=== PATIENT | female | born 1965 | race Caucasian/White ===

== ENCOUNTER 2020-07-06 08:30 | Day surgery (SDC) | payer OTHER ==
[2020-07-02 14:45] VITALS: BMI 42.9
--- NOTE | 2020-07-05 12:02 | HP ---
HISTORY AND PHYSICAL CHIEF COMPLAINT: Left wrist pain. HISTORY OF PRESENT ILLNESS: The patient is a 55-year-old, left-hand dominant, unemployed female who presents with left wrist pain after an injury on 06/19/2020. She states she lost her balance while doing yard work and fell on the left arm. She was seen in the emergency room on 06/30/2020, was placed in a splint, which she removed the same day. She denies previous injury or problems. PAST MEDICAL HISTORY: Significant for depression, asthma, COPD, hypertension. PAST SURGICAL HISTORY: Significant for carpal tunnel release. CURRENT MEDICATIONS: Advair, bupropion, meloxicam, ProAir, and trazodone. ALLERGIES: ACETAMINOPHEN. FAMILY HISTORY: Significant for heart disease. SOCIAL HISTORY: Significant for 1 pack per day tobacco use. REVIEW OF SYSTEMS: Sixteen point review of systems otherwise reviewed and is noncontributory. PHYSICAL EXAMINATION: On examination, patient is approximately 5 foot 4, 250 pounds of endomorphic habitus. HEENT exam is nonfocal. Neck is supple. She is nontender about the left shoulder and elbow. On examination of her left wrist, she has large dorsal swelling and deformity. Skin is intact. Light touch is intact throughout the left digits. No gross motor deficits are noted. She has limited range of motion of both the wrist and the digits. X-rays of the left wrist obtained in the office show a comminuted extra-articular distal radius fracture with significant angulation and dorsal comminution. IMPRESSION: 1. Left comminuted extra-articular distal radius fracture. 2. Chronic obstructive pulmonary disease. 3. Obesity. RECOMMENDATIONS: I talked to the patient at length regarding her condition which is complex. After thorough discussion, she opts to proceed with surgery. We will plan to proceed with open reduction and internal fixation. Potentially we will perform that as an outpatient procedure. Risks and benefits were discussed at length in layman's terms. MMODL / IJN: [id number] /
[~2020-07-06 08:30] MED LIST: DEXAMETHASONE SOD PHOSPHATE 4 MG/ML 1 ML VIAL IV ONE; HYDROmorphone 0.5 MG/0.5 ML SYRINGE IVP PRN; LACTATED RINGERS 1,000 ML IV SCH; LIDOCAINE 1% (10MG/ML) FOR IV START INTRADERMA PRN; MIDAZOLAM 2 MG/2 ML VIAL IV PRN; ONDANSETRON 4 MG/2 ML VIAL IVP ONE
[2020-07-06 08:58] VITALS: TEMP 97.8
[2020-07-06 09:44] LABS: Basophils # (A) 0.1 k/uL (0-0.2); Basophils % (A) 1 %; Eosinophils # (A) 0.1 k/uL (0-0.7); Eosinophils % (A) 1 %; HCT 39.9 % (34.0-46.0); HGB 13.6 gm/dL (11.4-16.0); Lymphocytes # (A) 2.3 k/uL (1.0-4.8); Lymphocytes % (A) 24 %; MCH 32.8 pg (25.0-35.0); MCHC 34.1 g/dL (31.0-37.0); Mean Platelet Volume 8.7; Monocytes # (A) 0.5 k/uL (0-1.0); Monocytes % (A) 6 %; Neutrophils # (A) 6.5 k/uL (1.3-7.7); Neutrophils % (A) 68 %; Platelet Count 262 k/uL (150-450); RBC 4.16 m/uL (3.80-5.40); RDW 13.3 % (11.5-15.5); WBC 9.5 k/uL (3.8-10.6)
[2020-07-06] MEDS ORDERED: MIDAZOLAM 2 MG/2 ML VIAL IV ONE (09:44)
[2020-07-06] MEDS ORDERED: LIDOCAINE 1% INJ 10MG/ML (20 ML MDV) ONE (10:12)
[2020-07-06] MEDS ORDERED: fentaNYL (PF) 50 MCG/ML 2 ML AMP ONE (10:12)
[2020-07-06] MEDS ORDERED: PROPOFOL 10 MG/ML 20 ML VIAL IV ONE (10:12)
[2020-07-06] MEDS ORDERED: SUCCINYLCHOLINE CHLORIDE 100 MG/5 ML SYR IV ONE (10:12)
[2020-07-06] MEDS ORDERED: DEXAMETHASONE SOD PHOSPHATE 4 MG/ML 1 ML VIAL ONE (10:12)
[2020-07-06] MEDS ORDERED: PHENYLEPHRINE-0.9% NACL SYG 1,000 MCG/10 ML SYRINGE ONE (10:12)
[2020-07-06] MEDS ORDERED: MIDAZOLAM 2 MG/2 ML VIAL ONE (10:12)
[2020-07-06] MEDS ORDERED: ROPIVACAINE 5 MG/ML 30 ML VIAL ONE (10:12)
[2020-07-06] MEDS ORDERED: ceFAZolin 1,000 MG in SODIUM CHLORIDE 0.9% 1,000 ML IRRIGATION ONE (10:48)
[2020-07-06] MEDS ORDERED: LACTATED RINGERS 1,000 ML IV ONE (11:54)
--- NOTE | 2020-07-06 12:38 | P.OP ---
Date of Procedure: 07/06/20 Preoperative Diagnosis: Comminuteddisplaced left extra-articular distal radius fracture Postoperative Diagnosis: Same Procedure(s) Performed: Open reduction and internal fixation left extra-articular distal radius fracture Implants: Arthrex 3-hole standard volar plate Anesthesia: irene JUNIOR Surgeon: Chadd Roca Planer Stone #1: Carlos Mcgowan Estimated Blood Loss (ml): 10 Pathology: none sent Condition: stable Disposition: PACU Indications for Procedure: The patient's a 55-year-old female who presented after injuring herself almost 2 weeks ago with a significantly comminuted and displaced left extra-articular distal radius fracture. A discussion the risks and benefits of operative intervention was made with patient. She opted to proceed with surgery. Operative risks to include infection, neurovascular injury, development of nonunion/malunion, possible need for subsequent procedures was discussed. She was informed because of the nature of her fracture and the delay in seeking medical treatment, these complications and risks are significantly increased. She is also a heavy smoker and that increases her risks as well. Informed consent was obtained. Operative Findings: As below Description of Procedure: The patient was brought to the operating room, and after induction of general anesthesia the left upper extremity was prepped and draped in normal fashion. The tourniquet was inflated to 250 mmHg. An 8 cm incision was then made along the volar aspect of the left wrist in line with the flexor carpi radialis. Skin was incised sharply. Subcutaneous tissues were divided bluntly. Electrocautery was used for hemostasis. The flexor carpi radialis sheath was then opened and the tendon was gently retracted ulnarly and the radial artery was retracted radially. The underlying fascia was opened. The contents the carpal canal were bluntly dissected ulnarly. The pronator quadratus was elevated off the distal radius and the fracture site was identified and cleaned of clot and debris. There was significant volar comminution along with dorsal comminution. There is also significant shortening and early healing with fibrotic tissue. This was re moved. The fracture was provisionally reduced and a volar plate was provisionally placed with the aid of fluoroscopy. 3.5 mm cortical screws were placed proximally. Distally locking smooth pegs were placed of the appropriate length with the aid of fluoroscopy. I was able to reduce this complex fracture back to neutral volar tilt and reasonable overall alignment. The remaining proximal screw holes were filled with 3.5 mm cortical screws the appropriate length. The wound was irrigated normal saline. The pronator quadratus was repaired with 3-0 Vicryl suture. The subcu tissues were reapproximated interrupted 3-0 Vicryl suture. The skin was reapproximated with 3-0 subcuticular Prolene suture. Steri-Strips were applied. A sterile dressing was applied. The tourniquet was deflated prior to final wound closure with approximately 90 minutes total tourniquet time. A volar splint was placed. The patient was awoken from general anesthesia and transferred to recovery room in good condition. Blood loss was estimated at 10 mL. No complications were incurred. Sponge and needle counts were correct at the end of the case. Carlos HENDRICKSON assisted during the major components the case to include exposure, reduction, implant placement, and closure.
--- NOTE | 2020-07-06 13:15 | XR ---
Fluoroscopy History: ORIF LEFT WRIST FX ORIF LEFT WRIST FX . 1.14 MIN FL TIME. 3 PICS SCANNED
[2020-07-06 13:45] VITALS: RESP 16
--- NOTE | 2020-07-06 13:46 | P.ANPRN ---
Procedure Note - Anesthesia - Nerve Block Performed Left Supraclavicular Single Time Out Performed: Yes Date of Procedure: 07/06/20 Procedure Start Time: 09:41 Procedure Stop Time: 09:53 Location of Patient: PreOp Indication: Acute Post-Operative Pain, Requested by Surgeon Sedation Type: Sedate with meaningful contact maintained Preparation: Sterile Prep, Sterile Dressing Position: Sitting Catheter: None Needle Types: On-Q Needle Gauge: 20 Ultrasound used to visualize needle placement: Yes Ultrasound used to observe medication spread: Yes Injectate: 0.5% Ropivacaine (see comment for volume) (20 ml + decadron 4 mg) Blood Aspirated: No Pain Paresthesia on Injection Noted: No Resistance on Injection: Normal Image Stored and Saved: Yes Events: Uneventful and Well Tolerated
[2020-07-06 14:02] VITALS: BP 112/74; PULSE 85
[2020-07-06] MEDS ORDERED: IV FLUID CONTINUATION 1,000 ML IV ONE (14:05)
== END 2020-07-06 14:50 | disposition home or self-care (01) ==
LOC: OR 08:30
PROVIDERS: ATTEND Orthopaedic Surgery
DX: S52.552A Other extraarticular fracture of lower end of left radius, initial encounter for closed fracture (principal); W18.39XA Other fall on same level, initial encounter; I10 Essential (primary) hypertension; F32.9 Major depressive disorder, single episode, unspecified; J44.9 Chronic obstructive pulmonary disease, unspecified; F17.210 Nicotine dependence, cigarettes, uncomplicated; I49.9 Cardiac arrhythmia, unspecified; N31.9 Neuromuscular dysfunction of bladder, unspecified; E66.01 Morbid (severe) obesity due to excess calories; Z68.41 Body mass index [BMI] 40.0-44.9, adult; Z79.899 Other long term (current) drug therapy; Z88.6 Allergy status to analgesic agent; Z98.890 Other specified postprocedural states; Z82.49 Family history of ischemic heart disease and other diseases of the circulatory system
CPT/HCPCS: 64415; 76942; 85025; 73110; 25607; C1713; J2250; J1100; J0690 ×2; J2405; J2001; J3010; J2795; J2370; J0330; J2704